=== PATIENT | male | born 2000 | race Caucasian/White ===

== ENCOUNTER 2021-02-22 23:08 | Emergency (ER) | payer BC, OTHER ==
[~2021-02-22] VITALS: Ht 175 cm; Wt 81.6 kg
--- OUTSIDE RECORDS SUMMARY | 2021-02-22 23:13 | XMS REPORT | Clinical Summary ---
Author Author [facility] Organization [facility] Address Unknown Phone Unavailable Care Team Providers Care Jump Roll Operator Name Role Phone Pcp, Not Found COKE CRUSHER OPERATOR PP Allergies Not on File Medications Not on file Active Problems Not on file Social History Date Tobacco Use Types Packs/Day Years Used Never Assessed Sex Assigned at Date Recorded Not on file Last Filed Vital Signs Reading Time Taken Comments Vital Sign - - Blood Pressure 78 05/21/2020 5:18 PM [employer]OX TE[employer] Pulse 37 C (98.6 F) 05/21/2020 5:18 PM [employer]OX TE[employer] Temperature 18 05/21/2020 5:18 PM [employer] BOX TE[employer] Respiratory Rate 98% 05/21/2020 5:18 PM AIR BOX TESTER Oxygen Saturation - - Inhaled Oxygen Concentration - - Weight - - Height - - Body Mass Index Plan of Treatment Not on file Results Not on filefrom Last 3 Months Insurance Type Payer Benefit Subscriber ID Effective Phone Address Plan / Dates Group [facility] 1 [id number] 2020- [facility] [id number] Care Teams Start Date End Date Jump Roll Operator Relationship Specialty 05/20/20 Pcp, Not Found, COKE CRUSHER OPERATOR PCP - General Family Medicine
--- NOTE | 2021-02-22 23:24 | ED Lower Extremity ---
General Chief Complaint: Lower Extremity Stated Complaint: R KNEE PAIN Source: patient Exam Limitations: no limitations History of Present Illness Date Seen by Provider: Feb 22, 2021 Time Seen by Provider: 23:15 Initial Comments Patient is a 20-year-old male who presents to the emergency department today with a chief complaint of right knee pain. Patient states that he walked home from a tailgating [place] last night and was fine, woke up this morning had signi ficant medial right knee pain. Patient states it hurts significantly to bear weight. Denies any pain in his right hip, right ankle or foot. No recent illnesses. No fevers, chills, cough or shortness of breath. All other review of systems reviewed and negative except as stated. Severity: moderate Pain/Injury Location: right knee Method of Injury: unknown Modifying Factors: Improves With Immobilization Allergies and Home Medications Allergies Coded Allergies: No Known Drug Allergies (Unverified , 02/22/21) Patient Home Medication List Home Medication List Reviewed: Yes Hydrocodone/Acetaminophen (Hydrocodone-Acetamin 5-325 mg) 1 Each Tablet, 1 TAB PO Q6H PRN for PAIN-MODERATE (5-7) Prescribed by: JESU LUNDBERG on 02/23/21 0000 Review of Systems Constitutional: see HPI EENTM: no symptoms reported Respiratory: no symptoms reported Cardiovascular: no symptoms reported Gastrointestinal: no symptoms reported Genitourinary: no symptoms reported Musculoskeletal: joint pain (right knee) Skin: no symptoms reported All Other Systems Reviewed Negative Unless Noted: Yes Physical Exam Vital Signs Vital Signs - First Documented 02/22/21 23:15 Temp 36.3 Pulse 70 Resp 16 B/P (MAP) 137/81 (99) Pulse Ox 99 O2 Delivery Room Air Capillary Refill : Height, Weight, BMI Height: '" Weight: lbs. oz. kg; BMI Method: General Appearance: WD/WN, no apparent distress Cardiovascular: regular rate, rhythm Respiratory: lungs clear, normal breath sounds, no respiratory distress, no accessory muscle use Hips: bilateral hip non-tender, bilateral hip normal inspection, bilateral hip normal range of motion, bilateral hip no evidence of injury Legs: bilateral leg non-tender, bilateral leg normal inspection, bilateral leg normal range of motion, bilateral leg no evidence of injury Knees: right knee pain, right knee soft tissue tenderness (tenderness just medial to the patella tendon of the right knee, slightly swollen and a little warm. no erythema; decreased ROM secondary to pain), right knee swelling (mild) Ankles: bilateral ankle non-tender, bilateral ankle normal inspection, bilateral ankle normal range of motion, bilateral ankle no evidence of injury Feet: bilateral foot non-tender, bilateral foot normal inspection, bilateral foot normal range of motion, bilateral foot no evidence of injury Neurologic/Tendon: normal motor functions, normal tendon functions Neurologic/Psychiatric: alert, normal mood/affect, oriented x 3 Skin: normal color, warm/dry Progress/Results/Core Measures Results/Orders My Orders Orders - JESU LUNDBERG MD Knee, Right, 3 Views (02/22/21 23:22) Hydrocodone/Apap 5/325 Tablet (Lortab 5 (02/23/21 00:00) Naproxen Tablet (Naprosyn Tablet) (02/23/21 00:00) Vital Signs/I&O 02/22/21 23:15 Temp 36.3 Pulse 70 Resp 16 B/P (MAP) 137/81 (99) Pulse Ox 99 O2 Delivery Room Air Diagnostic Imaging Diagonstic Imaging: Xray Plain Films/CT/US/NM/MRI: knee Comments 3 views of the left knee show no bony abnormality; no effusion NAME: TABATHA OQUENDO [facility] REC#: [id number] PT STATUS: REG ER : 2001 PHYSICIAN: JESU LUNDBERG MD ADMIT DATE: 02/22/21/ER Draft Date of Exam:02/22/21 KNEE, RIGHT, 3 VIEWS CLINICAL HISTORY: Right knee pain. COMPARISON: None. TECHNIQUE: 3 views of the right knee. FINDINGS: There is no acute fracture or dislocation of the right knee. Alignment is anatomic. The imaged joint spaces are preserved. No joint effusion is seen in the right knee. Osseous fragment is seen inferior to the patella within the infrapatellar tendon, which may represent tendinitis. IMPRESSION: 1. No acute fracture or dislocation in the right knee. No joint effusion. 2. Findings which may represent calcific tendinitis in the infrapatellar tendon. Dictated on workstation # [id number] Dict: 02/22/21 [id number] Trans: 02/22/21 2359 [facility] [id number] Interpreted by: LEDA CAICEDO DO Electronically signed by: Departure Impression Primary Impression: Tendinitis of right knee Disposition: 01 HOME, SELF-CARE Condition: Stable Departure-Patient Inst. Decision time for Depature: 23:54 Referrals: [facility]/BAILEY KHAN,LOCAL PHYSICIAN (PCP) Primary Care Physician Patient Instructions: Knee Pain (DC) Add. Discharge Instructions: Take over the counter Alleve, 2 pills (500mg) twice a day for pain and inflammation. Always take this medication with food. Do this for 5 days. Hydrocodone 5mg - take one every 6 hours as needed for severe pain. If you have worsening pain, with swelling, redness or fever, come back to the Emergency Department for re-evaluation. Follow up with [facility] as needed. Scripts Hydrocodone/Acetaminophen (Hydrocodone-Acetamin 5-325 mg) 1 Each Tablet 1 TAB PO Q6H PRN for PAIN-MODERATE (5-7), #10 TAB Prov: JESU LUNDBERG MD 02/23/21 JESU LUNDBERG MD Feb 22, 2021 23:24
[2021-02-23] MEDS ORDERED: NAPROXEN 250 MG (NAPROSYN) TABLET PO ONE
[2021-02-23] MEDS ORDERED: ACHD5005 PO
[2021-02-23] MEDS ORDERED: HYDROcodone/APAP 5 MG/325 MG (LORTAB) TAB PO ONE
--- NOTE | 2021-02-23 00:01 | Diagnostic Imaging Report ---
CLINICAL HISTORY: Right knee pain. COMPARISON: None. TECHNIQUE: 3 views of the right knee. FINDINGS: There is no acute fracture or dislocation of the right knee. Alignment is anatomic. The imaged joint spaces are preserved. No joint effusion is seen in the right knee. Osseous fragment is seen inferior to the patella within the infrapatellar tendon, which may represent tendinitis. IMPRESSION: 1. No acute fracture or dislocation in the right knee. No joint effusion. 2. Findings which may represent calcific tendinitis in the infrapatellar tendon. Dictated by: Dictated on workstation # [id number]
[2021-02-23 00:13] VITALS: BP 135/80
== END 2021-02-23 00:13 | disposition home or self-care (01) ==
LOC: ER 23:10
DX: M77.9 Enthesopathy, unspecified (principal)
CPT/HCPCS: 73562

== ENCOUNTER 2022-02-06 12:40 | Emergency (ER) | payer BC ==
[~2022-02-06] VITALS: Ht 175.2 cm; Wt 81.6 kg
[~2022-02-06 12:40] MED LIST: ACHD5005 PO
--- NOTE | 2022-02-06 13:17 | ED Upper Extremity ---
General Chief Complaint: Upper Extremity Stated Complaint: RIGHT HAND FINGERS LACERATIONS Nursing Triage Note: PT AMB TO RM 3. PT STATED THAT HE CUT HIS 3RD AND 4TH FINGER ON HIS RIGHT HAND ON A SHOVEL WHILE DOING YARDWORK. Source: patient Exam Limitations: no limitations History of Present Illness Date Seen by Provider: Feb 06, 2022 Time Seen by Provider: 13:15 Initial Comments This is a well-appearing 21-year-old male who presented to the ER with complaints of laceration to his right middle and ring finger just prior to arrival. States that he was working with a shovel and it came back and cut his fingers. Immediately applied direct pressure, bleeding controlled. Believes his last tetanus was in childhood summer around age 11-12. Has not taken anything for pain before presenting to the ER. Allergies and Home Medications Allergies Coded Allergies: No Known Drug Allergies (Unverified , 02/22/21) Patient Home Medication List Hydrocodone/Acetaminophen (Hydrocodone-Acetamin 5-325 mg) 1 Each Tablet, 1 TAB PO Q6H PRN for PAIN-MODERATE (5-7) Prescribed by: JESU LUNDBERG on 02/23/21 0000 Past Zfkffuq-Duenkx-Vfsefg Hx Patient Social History Tobacco Use?: Yes E-Cig or Vaping type used: Nicotine Substance use?: Yes Substance type: Marijuana Alcohol Use?: Yes Alcohol Frequency: Couple times a week Pt feels they are or have been: Unable to obtain Immunizations Up To Date Influenza Vaccine Up-to-Date: No; Not Current Past Medical History Surgery/Hospitalization HX: MED HX: DEPRESSION SX: RIGHT ACL 2019; WRIST Physical Exam Vital Signs Vital Signs - First Documented 02/06/22 12:50 Temp 36.7 Pulse 79 Resp 16 B/P (MAP) 127/72 (90) Pulse Ox 96 O2 Delivery Room Air Capillary Refill : Less Than 3 Seconds Height, Weight, BMI Height: '" Weight: lbs. oz. kg; 26.00 BMI Method: Progress/Results/Core Measures Results/Orders My Orders Orders - DONN WARE PETROLEUM REFINERY WORKER Finger(S) (02/06/22 13:06) Acetaminophen Tablet (Tylenol Tablet) (02/06/22 13:30) Dipht,Pertuss(Acell),Tet Adult (Boostrix (02/06/22 14:00) Medications Given in ED Current Medications Medications Dose Ordered Sig/Richard Route Start Time Stop Time Status Last Admin Dose Admin Acetaminophen 1,000 mg ONCE ONCE PO 02/06/22 13:30 02/06/22 13:31 DC 02/06/22 13:47 1,000 MG Diphtheria/ Tetanus/Acell Pertussis 0.5 ml ONCE ONCE IM 02/06/22 14:00 02/06/22 14:01 DC 02/06/22 13:59 0.5 ML Vital Signs/I&O 02/06/22 12:50 Temp 36.7 Pulse 79 Resp 16 B/P (MAP) 127/72 (90) Pulse Ox 96 O2 Delivery Room Air Blood Pressure Mean: 90 Departure Impression Primary Impression: Finger laceration Disposition: HOME, SELF-CARE Condition: Improved Departure-Patient Inst. Decision time for Depature: 14:06 Referrals: NO,LOCAL PHYSICIAN (PCP/Family) Primary Care Physician Patient Instructions: Skin Glue for Minor Cuts Add. Discharge Instructions: Plan: 1. Discharge home. 2. Keep wound clean and dry. Avoid soaking, swimming for the next 7 days. 3. Avoid strenuous activity while fingers are healing. 4. If you are working in dirty area, cover with dry bandage. 5. Despite the best care, any wound can become infected. Watch for increase in redness, swelling, increase in pain, drainage, red streaks or fever and report any of these to your physician or return to the emergency room. 6. The glue will fall off naturally, avoid picking, may trim edges. May fully remove after 10 days. 7. Your tetanus was updated today. The shot site may become warm, swollen, red or tender, this is normal. You may also have a low grade fever. 8. Return to ER for any new, concerning, or worsening symptoms. All discharge instructions reviewed with patient and/or family. Voiced understanding. DONN WARE PETROLEUM REFINERY WORKER Feb 06, 2022 13:17
[2022-02-06] MEDS ORDERED: ACETAMINOPHEN 500 MG TAB (TYLENOL) PO ONE (13:30)
--- NOTE | 2022-02-06 13:47 | Diagnostic Imaging Report ---
INDICATION: Injury with cut to 3rd and 4th fingers. Injury with a shovel during yard work today. EXAMINATION: Right fingers 02/06/2022. FINDINGS: Gauze-like material overlies the 3rd and 4th distal fingers obscuring fine bony detail. No underlying fractures or dislocations appreciated. No definite radiopaque foreign bodies appreciated. Osseous structures intact with no dislocations. IMPRESSION: 1. No acute osseous abnormality. Dictated by: Dictated on workstation # [id number]
[2022-02-06] MEDS ORDERED: TETANUS,DIPTH,PERTUSS P/F (BOOSTRIX) 0.5 ML VIAL IM ONE (14:00)
[2022-02-06 14:16] VITALS: BP 127/86
== END 2022-02-06 14:16 | disposition home or self-care (01) ==
LOC: EDUNIT# 12:40 → ER 12:42
DX: S61.212A Laceration without foreign body of right middle finger without damage to nail, initial encounter (principal); S61.214A Laceration without foreign body of right ring finger without damage to nail, initial encounter; Z23 Encounter for immunization; W27.8XXA Contact with other nonpowered hand tool, initial encounter
CPT/HCPCS: 73140; 90715

== ENCOUNTER 2022-05-23 12:02 | Emergency (ER) | payer BC ==
[~2022-05-23] VITALS: Ht 175 cm; Wt 81.6 kg
--- NOTE | 2022-05-23 12:30 | ED Lower Extremity ---
General Chief Complaint: Lower Extremity Stated Complaint: RIGHT ANKLE INJURY Nursing Triage Note: PT PRESENTS TO ED WITH COMPLAINTS OF R ANKLE PAIN/INJURY YESTERDAY WHEN RUNNING AND TWISTING ANKLE IN A POT HOLE. (MICHAEL GOINS) History of Present Illness Date Seen by Provider: May 23, 2022 Time Seen by Provider: 12:16 Initial Comments 21 yo male presents to the ED with right ankle injury. He said he was running earlier this morning at 3am and injured his foot when he stepped into a pot hole. Pt says his foot turned inward. He is unable to bear weight and pain is a 6/10 with no radiation. Has not iced or taken any medication for the pain. Pt says he has rolled his right ankle before. No other complaints. (MICHAEL GOINS) Allergies and Home Medications Allergies Coded Allergies: No Known Drug Allergies (Unverified , 02/22/21) Patient Home Medication List Home Medication List Reviewed: Yes (MICHAEL GOINS) Hydrocodone/Acetaminophen (Hydrocodone-Acetamin 5-325 mg) 1 Each Tablet, 1 TAB PO Q6H PRN for PAIN-MODERATE (5-7) Prescribed by: JESU LUNDBERG on 02/23/21 0000 Review of Systems Constitutional: no symptoms reported EENTM: no symptoms reported Respiratory: no symptoms reported Cardiovascular: no symptoms reported Gastrointestinal: no symptoms reported Musculoskeletal: joint swelling, other (Right ankle pain ) Skin: no symptoms reported Psychiatric/Neurological: No Symptoms Reported (MICHAEL GOINS) Past Ycewdlo-Rsebvr-Evbixa Hx Patient Social History Tobacco Use?: No Smokeless Tobacco Frequency: Current Everyday User E-Cig or Vaping type used: Nicotine Substance use?: Yes Substance type: Marijuana Alcohol Use?: Yes Alcohol Frequency: Couple times a week Pt feels they are or have been: No (MICHAEL GOINS) Past Medical History Surgery/Hospitalization HX: MED HX: DEPRESSION SX: RIGHT ACL 2019; WRIST (MICHAEL GOINS) Physical Exam Vital Signs Vital Signs - First Documented 05/23/22 12:14 Temp 35.9 Pulse 84 Resp 20 B/P (MAP) 114/66 (82) Pulse Ox 97 (JSEU LUNDBERG MD) Vital Signs Capillary Refill : Less Than 3 Seconds (MICHAEL GOINS) Height, Weight, BMI Height: '" Weight: lbs. oz. kg; 26.00 BMI Method: General Appearance: WD/WN, no apparent distress HEENT: PERRL/EOMI, normal ENT inspection Cardiovascular: regular rate, rhythm, no edema, no gallop, no JVD, no murmur Respiratory: chest non-tender, lungs clear, normal breath sounds, no respiratory distress, no accessory muscle use Ankles: left ankle non-tender; right ankle normal inspection; left ankle normal range of motion, left ankle no evidence of injury; right ankle deformity, right ankle limited range of motion, right ankle pain, right ankle soft tissue tenderness, right ankle swelling Neurologic/Tendon: normal sensation, normal motor functions Neurologic/Psychiatric: alert, normal mood/affect, oriented x 3 Skin: normal color, warm/dry Lymphatic: no adenopathy (MICHAEL GOINS) Progress/Results/Core Measures Results/Orders My Orders Orders - JESU LUNDBERG MD Ankle, Right, 3 Views (05/23/22 12:32) (JESU LUNDBERG MD) Vital Signs/I&O 05/23/22 12:14 Temp 35.9 Pulse 84 Resp 20 B/P (MAP) 114/66 (82) Pulse Ox 97 (JESU LUNDBERG MD) Blood Pressure Mean: 82 Progress Progress Note : Time: 13:09 Progress Note 21-year-old status post twist injury of the right ankle last night at 3 AM. Did not fall, did not not hear a crack or break. Unable to bear weight. Neurovasc ularly intact on exam. Stable ankle. X-rays do not reveal fracture. Plan Eddi wrap for comfort, NSAIDs, follow-up as needed. (JESU LUNDBERG MD) Departure Impression Primary Impression: Right ankle sprain Qualified Codes: S93.401A - Sprain of unspecified ligament of right ankle, i nitial encounter Disposition: 01 HOME, SELF-CARE Condition: Stable Departure-Patient Inst. Decision time for Depature: 13:07 (JEUS LUNDBERG MD) Referrals: [facility],LOCAL PHYSICIAN (PCP) Primary Care Physician Patient Instructions: Ankle Sprain ED Add. Discharge Instructions: Elevate the ankle to keep swelling down. Ibuprofen 3 pills which is 600mg every 6 hours with food as needed for pain. Eddi wrap for comfort as needed. Toe touch weight bearing for balance for the next 24-48 hours. Then start bearing full weight on Tuesday. Return to the Emergency Department for any new, concerning or emergent complaints. Verification and Attestation of Medical Student E/M Service A medical student performed and documented this service in my presence. I reviewed and verified all information documented by the medical student and made modifications to such information, when appropriate. I personally performed the physical exam and medical decision making. Jesu Lundberg, May 23, 2022,13:09 (JESU LUNDBERG MD) MICHAEL GOINS May 23, 2022 12:29 JESU LUNDBERG MD May 23, 2022 13:12
--- NOTE | 2022-05-23 12:52 | Diagnostic Imaging Report ---
INDICATION: Right ankle pain. FINDINGS: There is no evidence of cortical disruption of the distal tibia or fibula. There is no widening of the ankle mortise. The talar dome is normal in morphology. The visualized portions of the foot appear normal. IMPRESSION: Negative radiographs of the right ankle. Dictated by: Dictated on workstation # [id number]
[2022-05-23 13:29] VITALS: BP 114/66
== END 2022-05-23 13:29 | disposition home or self-care (01) ==
LOC: EDUNIT# 12:02 → ER 12:04
DX: S93.401A Sprain of unspecified ligament of right ankle, initial encounter (principal); F17.200 Nicotine dependence, unspecified, uncomplicated; X50.1XXA Overexertion from prolonged static or awkward postures, initial encounter; Y93.02 Activity, running
CPT/HCPCS: 73610